=== PATIENT | female | born 1970 | race Caucasian/White ===

== ENCOUNTER 2016-07-04 10:23 | Emergency (ER) | payer OTHER ==
[~2016-07-04] VITALS: Ht 152.4 cm; Wt 67.7 kg
[2016-07-04 10:26] VITALS: Ht 152.4 cm; Wt 67.7 kg
[2016-07-04 11:02] LABS: HEMATOCRIT 41.1 % (37-47); MEAN CELL VOLUME 93.4 fL (80-100); MEAN CORPUSCULAR HGB CONC 34.3 g/dl (32-36); PLATELET COUNT 320 K/uL (130-400); WHITE BLOOD COUNT 12.97 K/uL (4.8-10.8)
[2016-07-04 11:06] LABS: PROTHROMBIN TIME (PATIENT) 10.7 SECONDS (9.0-12.0)
[2016-07-04 11:07] LABS: BLOOD UREA NITROGEN 8 mg/dl (7-18); CALCIUM 8.5 mg/dl (8.5-10.1); CARBON DIOXIDE 28 mmol/L (21-32); CHLORIDE 107 mmol/L (98-107); GLUCOSE 104 mg/dl (70-99); SODIUM 141 mmol/L (136-145)
--- NOTE | 2016-07-04 11:12 | DIAGNOSTIC IMAGING REPORT ---
CHEST ONE VIEW PORTABLE CLINICAL HISTORY: chest pain dyspnea COMPARISON STUDY: No previous studies for comparison. FINDINGS: The bones soft tissues and hemidiaphragms are normal. The cardiomediastinal silhouette is normal. The lungs are clear. The pulmonary vasculature is normal. IMPRESSION: Negative chest. Electronically signed by: Paul Auguste M.D. 07/04/2016 11:11 AM Dictated Date/Time: 07/04/2016 11:10 AM
[2016-07-04] MEDS ORDERED: KETOROLAC TROMETHAMINE 30 MG/ML VIAL IV STA (11:17)
[2016-07-04 11:24] LABS: ALB/GLOB RATIO 0.9 (0.9-2); ALKALINE PHOSPHATASE 79 U/L (45-117); ALT/SGPT 38 U/L (12-78); AST/SGOT 16 U/L (15-37); BUN/CREATININE RATIO 13.1 (10-20); CREATININE 0.63 mg/dl (0.60-1.20)
--- NOTE | 2016-07-04 13:05 | EMERGENCY ROOM VISIT NOTE ---
History Report prepared by [facility]: Sravan Marinelli Under the Supervision of: Dr. Frandy Chirinos D.O. First contact with patient: 11:09 Chief Complaint: CHEST PAIN Stated Complaint: CHEST PAIN Nursing Triage Summary: right side chest pain, goes into right shoulder and back. hurts more when taking a deep breath History of Present Illness The patient is a 46 year old female who presents to the Emergency Room with complaints of worsening sharp right sided chest pain that began yesterday. She rates her pain a 7/10 in severity. Her pain, at that time, continued into the night. It began as epigastrium pain, but moved into the right side. She woke up with worse pain this morning. Her pain radiates into her upper back on the right side. She has been short of breath. Her pain worsens with movement. Deep breathing also worsens her pain. She denies any cough. She has a mild cold, but denies any other serious illness. She notes bilateral pedal edema. She had her period 10 days ago. She denies any abdominal pain, nausea, or vomiting. Source of History: patient Onset: Yesterday Position: chest (right) Symptom Intensity: 7/10 Quality: sharp Timing: worsening Modifying Factors (Worsening): breathing, movement Associated Symptoms: + SOB, + back pain, No abdominal pain, No cough, No nausea, No vomiting Review of Systems See HPI for pertinent positives & negatives. A total of 10 systems reviewed and were otherwise negative. Past Medical & Surgical Medical Problems: (1) Chronic liver disease (2) GERD (gastroesophageal reflux disease) (3) Hyperlipidemia Family History Patient reports no known family medical history. Social History Smoking Status: Never Smoker Smokeless Tobacco Use: No Drug Use: none Housing Status: lives with family Current/Historical Medications No Active Prescriptions or Reported Meds Allergies Coded Allergies: Amoxicillin (Unverified Adverse Reaction, Intermediate, VAGINAL IRRITATION , 07/04/16) Physical Exam Vital Signs Date Time Temp Pulse Resp B/P Pulse Ox O2 Delivery O2 Flow Rate FiO2 07/04/16 12:38 82 17 96 07/04/16 12:35 83 07/04/16 12:33 87 23 97 07/04/16 12:31 90/68 07/04/16 12:28 86 17 97 07/04/16 12:23 88 25 96 07/04/16 12:18 85 14 97 07/04/16 12:13 87 21 97 07/04/16 12:08 90 27 96 07/04/16 12:03 86 19 116/75 96 07/04/16 11:43 96 20 97 07/04/16 11:38 86 18 96 07/04/16 11:33 92 25 96 07/04/16 11:31 110/72 07/04/16 11:28 88 23 97 07/04/16 11:23 89 19 97 07/04/16 11:18 98 26 98 07/04/16 11:13 100 24 98 07/04/16 11:08 99 21 97 07/04/16 11:07 97 Room Air 07/04/16 11:03 101 26 96 07/04/16 11:01 107/73 07/04/16 10:58 98 17 96 07/04/16 10:53 99 23 97 07/04/16 10:48 98 07/04/16 10:48 95 24 97 07/04/16 10:45 129/84 07/04/16 10:26 36.7 96 18 131/75 99 Room Air Physical Exam CONSTITUTIONAL/VITAL SIGNS: Reviewed / noted above. GENERAL: Non-toxic in appearance. INTEGUMENTARY: Warm, dry, and [place]. HEAD: Normocephalic. EYES: without scleral icterus or trauma. ENT/OROPHARYNX: clear and moist. LYMPHADENOPATHY/NECK: Is supple without lymphadenopathy or meningismus. RESPIRATORY: Lungs clear and equal. CARDIOVASCULAR: Regular rate and rhythm. GI/ABDOMEN: Soft and nontender. No organomegaly or pulsatile mass. No rebound or guarding. Normal bowel sounds. EXTREMITIES: Warm and well perfused. BACK: No CVA tenderness. NEUROLOGICAL: Intact without focal deficits. PSYCHIATRIC: normal affect. MUSCULOSKELETAL: Normally developed with good muscle tone. Tenderness to palpation of the right chest wall. Obvious discomfort with movement. Medical Decision & Procedures ER Provider Diagnostic Interpretation: Radiology results as stated below per my review and radiologist interpretation: CHEST ONE VIEW PORTABLE CLINICAL HISTORY: chest pain dyspnea COMPARISON STUDY: No previous studies for comparison. FINDINGS: The bones soft tissues and hemidiaphragms are normal. The cardiomediastinal silhouette is normal. The lungs are clear. The pulmonary vasculature is normal. IMPRESSION: Negative chest. Electronically signed by: Paul Auguste M.D. 07/04/2016 11:11 AM Dictated Date/Time: 07/04/2016 11:10 AM Laboratory Results 07/04/16 10:40 07/04/16 10:40 Test 07/04/16 10:40 07/04/16 10:58 Red Blood Count 4.40 M/uL (4.2-5.4) Mean Corpuscular Volume 93.4 fL (80-100) Mean Corpuscular Hemoglobin 32.0 pg (25-34) Mean Corpuscular Hemoglobin Concent 34.3 g/dl (32-36) RDW Standard Deviation 45.4 fL (36.4-46.3) RDW Coefficient of Variation 13.2 % (11.5-14.5) Mean Platelet Volume 9.0 fL (7.4-10.4) Prothrombin Time 10.7 SECONDS (9.0-12.0) Prothromb Time International Ratio 1.0 (0.9-1.1) Activated Partial Thromboplast Time 27.1 SECONDS (21.0-31.0) Partial Thromboplastin Ratio 1.0 D-Dimer 370 ug/L FEU (0-500) Anion Gap 6.0 mmol/L (3-11) Est Creatinine Clear Calc Drug Dose 95.8 ml/min Estimated GFR () 124.7 Estimated GFR (Non- 107.6 BUN/Creatinine Ratio 13.1 (10-20) Calcium Level 8.5 mg/dl (8.5-10.1) Total Bilirubin 0.3 mg/dl (0.2-1) Aspartate Amino Transf (AST/SGOT) 16 U/L (15-37) Alanine Aminotransferase (ALT/SGPT) 38 U/L (12-78) Alkaline Phosphatase 79 U/L (45-117) Total Creatine Kinase 65 U/L (26-192) Creatine Kinase MB < 0.5 ng/ml (0.5-3.6) Creatine Kinase MB Ratio (0-3.0) Total Protein 8.0 gm/dl (6.4-8.2) Albumin 3.8 gm/dl (3.4-5.0) Globulin 4.2 gm/dl (2.5-4.0) Albumin/Globulin Ratio 0.9 (0.9-2) Bedside Troponin I 0.000 ng/ml (0-0.045) Laboratory results as stated above per my review. Medications Administered Medications (Trade) Dose Ordered Sig/Cooper Route Start Time Stop Time Status Last Admin Dose Admin Ketorolac Tromethamine (Toradol Inj) 30 mg NOW STAT IV 07/04/16 11:17 07/04/16 11:18 DC 07/04/16 11:25 30 MG ECG Indication: chest pain Rate (beats per minute): 89 Rhythm: normal sinus Findings: no acute ischemic change, no ectopy ED Course 1109: Previous medical records were reviewed. The patient was evaluated in room C10. A complete history and physical examination was performed. 1117: Ordered Toradol Inj 30 mg IV 1305: On reevaluation, the patient is resting. I discussed the results and findings with the patient. She verbalized agreement of the treatment plan. She was discharged home. Medical Decision The differentials considered include acute myocardial infarction, acute coronary syndrome, myocarditis, pericarditis, pericardial effusions /tamponade, esophageal perforation, thoracic aortic dissection, pulmonary embolism, pneumonia, pneumothorax, pancreatitis, shingles, acute cholecystitis, perforated abdominal viscus. This is a 46-year-old female who presents to the ED with a chief complaint of chest pain on the right side of chest. She describes it as sharp pain. She had some associated shortness of breath yesterday. She describes it as a rather continuous steady pain. It seems to be worse with movement. She did have a recent upper respiratory infection with some achiness last week. She is recovered from this. Because of her pain, she came in for evaluation. Her exam reveals obvious discomfort with movement. She has some tenderness to palpation the chest wall. Her white blood cell count was 12.97. Complete metabolic panel was unremarkable. Troponin is negative. D-dimer is negative. Chest x-ray is negative for acute disease. The patient was told results the test. She was given Toradol IV for discomfort. She was felt to be stable for discharge and outpatient follow-up. She was recommended to take ibuprofen 600 mg every 6 hours for discomfort. Impression Primary Impression: Chest wall pain Scribe Attestation The scribe's documentation has been prepared under my direction and personally reviewed by me in its entirety. I confirm that the note above accurately reflects all work, treatment, procedures, and medical decision making performed by me. Departure Information Dispostion Home / Self-Care Prescriptions No Active Prescriptions or Reported Meds Referrals RV. Chowdary MD (PCP) Forms HOME CARE DOCUMENTATION FORM, IMPORTANT VISIT INFORMATION Patient Instructions My [facility] Additional Instructions Take ibuprofen 600 mg every 6 hours for pain. Anticipate improvement of symptoms over the next week. Avoid activities that aggravate the pain. Return for any significant worsening or new symptoms. Follow-up with your family doctor for recheck if symptoms do not improve over the next week.
[2016-07-04 13:29] VITALS: BP 107/62; PULSE 82; TEMP 36.7; O2SAT 98
== END 2016-07-04 13:30 | disposition home or self-care (01) ==
LOC: C.EDB 10:25 → C.EDC 13:30
DX: R07.89 Other chest pain (principal); R06.02 Shortness of breath; M54.9 Dorsalgia, unspecified; E78.5 Hyperlipidemia, unspecified; K76.9 Liver disease, unspecified; K21.9 Gastro-esophageal reflux disease without esophagitis

== ENCOUNTER → 2016-09-10 | Outpatient (CLI) | payer OTHER ==
[2016-09-10 12:18] LABS: BASO % 0.2 %; BASO ABS # 0.02 K/uL (0-0.2); COMPLETE YES; EOS % 5.1 %; HEMATOCRIT 39.8 % (37-47); IG% 0.2 %; LYMPH % 32.8 %; LYMPH ABS # 3.53 K/uL (1.2-3.4); MEAN CELL VOLUME 93.2 fL (80-100); MEAN CORPUSCULAR HEMOGLOBIN 31.4 pg (25-34); MEAN CORPUSCULAR HGB CONC 33.7 g/dl (32-36); MEAN PLATELET VOLUME 9.2 fL (7.4-10.4); MONO % 5.3 %; NEUT % 56.4 %; PLATELET COUNT 329 K/uL (130-400); RED BLOOD COUNT 4.27 M/uL (4.2-5.4); WHITE BLOOD COUNT 10.75 K/uL (4.8-10.8)
[2016-09-10 12:25] LABS: PREG INTERNAL NEGATIVE QC NEG CLEAR BACKGROUND; PREG INTERNAL POSITIVE QC POS CONTROL LINE
== END | disposition home or self-care (01) ==
LOC: C.LAB1850 09:45
PROVIDERS: ATTEND Obstetrics & Gynecology
DX: N93.9 Abnormal uterine and vaginal bleeding, unspecified (principal)

== ENCOUNTER → 2016-10-31 | Outpatient (CLI) | payer OTHER | END | disposition home or self-care (01) | LOC: C.PAPS 14:16 | PROVIDERS: ATTEND Obstetrics & Gynecology | DX: Z01.419 Encounter for gynecological examination (general) (routine) without abnormal findings (principal) ==